=== PATIENT | female | born 1995 ===

== ENCOUNTER 2021-01-27 02:46 | Outpatient (CLI) | payer SELFPAY ==
[2021-01-27 03:45] VITALS: BP 115/66
== END 2021-01-27 04:56 | disposition home or self-care (01) ==
LOC: TRG 02:46 → APU 02:48 → TRG 04:56
PROVIDERS: ATTEND Obstetrics & Gynecology
DX: Z34.93 Encounter for supervision of normal pregnancy, unspecified, third trimester (principal); Z3A.39 39 weeks gestation of pregnancy
CPT/HCPCS: 59025

== ENCOUNTER 2021-02-05 20:53 | Inpatient (IN) | payer SELFPAY ==
[2021-02-05] MEDS ORDERED: OXYTOCIN 10 UNIT/1 ML INJ IM PRN (22:07)
[2021-02-05] MEDS ORDERED: METHYLERGONOVINE MALEATE 0.2 MG/ML VIAL IM PRN (22:07)
[2021-02-05] MEDS ORDERED: miSOPROStol 200 MCG TAB PR PRN (22:07)
[2021-02-05] MEDS ORDERED: ePHEDrine SULFATE 50 MG/1 ML INJ IV PRN (22:07)
[2021-02-05] MEDS ORDERED: LOPERAMIDE 2 MG CAP PO PRN (22:07)
[2021-02-05] MEDS ORDERED: TERBUTALINE 1 MG/1 ML INJ SUB-Q PRN (22:07)
[2021-02-05] MEDS ORDERED: LIDOCAINE (2%) 20 MG/1 ML VIAL 20 ML MDV INFILTRATI ONE (22:07)
[2021-02-05] MEDS ORDERED: BUTORPHANOL 2 MG/1 ML INJ IV PRN (22:07)
[2021-02-05] MEDS ORDERED: MINERAL OIL 30 ML ORAL LIQD PO PRN (22:07)
[2021-02-05] MEDS ORDERED: CARBOPROST TROMETHAMINE 250 MCG/1 ML INJ IM PRN (22:07)
[2021-02-05] MEDS ORDERED: ACETAMINOPHEN 325 MG TAB PO ONE (22:10)
[2021-02-05 22:21] LABS: Hematocrit 32.4 % (30.3-42.9); Hemoglobin 11.2 gm/dl (10.1-14.3); Mean Corpuscular HGB Conc 35 % (30-34); Mean Corpuscular Volume 94 fl (79-97); Platelet Count 317 K/mm3 (140-440); Red Blood Count 3.44 M/mm3 (3.65-5.03); Red Cell Distribution Width 14.3 % (13.2-15.2)
--- NOTE | 2021-02-05 22:25 | History and Physical Report ---
History of Present Illness Date of examination: 02/05/21 Date of admission: 02/05/21 20:53 Chief complaint: IOL for postdates History of present illness: 25yo G1 at weeks, IOL For postdates. PNC at [facility] possible LGA Past History Past Surgical History: no surgical history [employer] History: abnormal PAP smear Family/Genetic History: none Social history: no significant social history - Obstetrical History Expected Date of Delivery: 01/29/21 Actual Gestation: 41 Week(s) 0 Day(s) : 1 Medications and Allergies Allergies Allergy/AdvReac Type Severity Reaction Status Date / Time No Known Allergies Allergy Verified 02/05/21 22:22 Home Medications Medication Instructions Recorded Confirmed Last Taken Type One Daily Tablet 1 tab PO DAILY 02/05/21 02/05/21 02/05/21 19:00 History Active Meds: Active Medications Acetaminophen (Acetaminophen 325 Mg Tab) 650 mg PO ONCE ONE Stop: 02/05/21 22:11 Butorphanol Tartrate (Butorphanol 2 Mg/1 Ml Inj) 1 mg IV Q2H PRN PRN Reason: Pain, Moderate(4-6) LABOR PAIN Butorphanol Tartrate (Butorphanol 2 Mg/1 Ml Inj) 2 mg IV Q2H PRN PRN Reason: Pain , Severe (7-10) Carboprost Tromethamine (Carboprost Tromethamine 250 Mcg/1 Ml Inj) 250 mcg IM ONCE PRN PRN Reason: Uterine Bleeding Ephedrine Sulfate (Ephedrine Sulfate 50 Mg/1 Ml Inj) 10 mg IV Q2M PRN PRN Reason: Hypotension Fentanyl (Fentanyl 100 Mcg/2 Ml Inj) 100 mcg IV Q2H PRN PRN Reason: Pain,Severe (7-10) LABOR PAIN Oxytocin/Sodium Chloride (Pitocin/Ns 30 Unit/500ml) 30 units in 500 mls @ 2 mls/hr IV TITR NICOLE; Protocol Lactated Ringer's (Lactated Ringers) 1,000 mls @ 125 mls/hr IV DIRECT NICOLE Oxytocin/Sodium Chloride (Pitocin/Ns 30 Unit/500ml) 30 units in 500 mls @ 40 mls/hr IV TITR NICOLE; Protocol Lidocaine (Lidocaine (2%) 20 Mg/1 Ml Vial 20 Ml Mdv) 20 ml INFILTRATI ONCE ONE Stop: 02/05/21 22:08 Loperamide HCl (Loperamide 2 Mg Cap) 2 mg PO ONCE PRN PRN Reason: give with Hemabate Methylergonovine Maleate (Methylergonovine Maleate 0.2 Mg/Ml Vial) 0.2 mg IM ONCE PRN PRN Reason: Uterine Bleeding Mineral Oil (Mineral Oil 30 Ml Oral Liqd) 30 ml PO QHS PRN PRN Reason: Constipation Misoprostol (Misoprostol 200 Mcg Tab) [address] ONCE PRN PRN Reason: Uterine Bleeding Oxytocin (Oxytocin 10 Unit/1 Ml Inj) 10 unit IM ONCE PRN PRN Reason: Uterine Bleeding Terbutaline Sulfate (Terbutaline 1 Mg/1 Ml Inj) 0.25 mg SUB-Q ONCE PRN PRN Reason: Hyperstimulation/Hypertonicity Review of Systems All systems: negative (no OB complaints) - Vital Signs Vital signs: Vital Signs Temp Resp 99 F 18 02/05/21 21:33 02/05/21 21:33 Temp Pulse Resp BP Pulse Ox 99 F 92 H 18 99 02/05/21 21:33 02/05/21 22:18 02/05/21 21:33 02/05/21 22:18 - Physical Exam Breasts: Positive: deferred Cardiovascular: Regular rate Lungs: Positive: Clear to auscultation Abdomen: Positive: normal appearance, soft, normal bowel sounds Genitourinary (Female): Positive: normal external genitalia, normal perenium Vulva: both: normal Vagina: Positive: normal moisture Uterus: Positive: enlarged Adnexa: both: normal Anus/Rectum: Positive: normal perianal skin Extremities: Positive: normal Deep Tendon Reflex Grade: Normal +2 - Obstetrical FHR: category 1 Cervical Dilatation: 3 Cervical Effacement Percentage: 50 station: -2 Uterine Contraction Pattern: Irregular Uterine Tone Measurement Phase: Contraction Uterine Contraction Intensity: Mild Results Result Diagrams: 02/05/21 21:50 Abnormal lab results 02/05/21 Range/Units 21:50 RBC 3.44 L (3.65-5.03) M/mm3 MCH 33 H (28-32) pg MCHC 35 H (30-34) % All other labs normal. Assessment and Plan admission US for EFW Pitocin GBS negative CFM Pain meds PRN Monitor labor progress closely Maternal/ well being reassuring at bedside Jaleesa Thomas MD
[2021-02-05] MEDS: LACTATED RINGERS 1,000 ML IV SCH (22:48)
[2021-02-05] MEDS ORDERED: OXYTOCIN DRIP 30 UNITS/500 ML BAG IV SCH ×2 (23:00)
--- NOTE | 2021-02-06 03:01 | Ultrasound Report ---
OB ultrasound INDICATION: well-being FINDINGS: There is a single live intrauterine in cephalic position. Placenta grade 3. heart rate 1 27 bpm. Ultrasound age 40 weeks 3 days. weight 4008 5 g IMPRESSION: Live intrauterine in cephalic position. Ultrasound age 40 weeks 3 days. heart rate 12 7 bpm. Signer Name: Ishmael Morel MD Signed: 02/06/2021 2:56 AM Workstation Name: [id number]
[2021-02-06] MEDS: fentaNYL 100 MCG/2 ML INJ IV PRN ×2 (05:03→23:46)
[2021-02-06] MEDS: LACTATED RINGERS 1,000 ML IV SCH ×2 (06:59→15:42)
[2021-02-06] MEDS: BUTORPHANOL 2 MG/1 ML INJ IV PRN ×4 (07:42→15:46)
[2021-02-06] MEDS: ONDANSETRON 4 MG/2 ML INJ IV PRN ×2 (09:43→15:47)
--- NOTE | 2021-02-06 10:14 | Progress Note ---
Assessment and Plan A: IUP @ 41 1/7 Weeks Category I Tracing Active Labor GBS Negative P: Continue Pitocin Augmentation Multiple Maternal Position Changes IV Pain Control Subjective - Subjective Date of service: 02/06/21 Patient reports: movement normal, contractions Objective - Vital Signs Vital Signs: Vital Signs - 12hr 02/05/21 02/05/21 02/05/21 22:13 22:18 22:23 Temperature Pulse Rate 77 92 H 75 Respiratory Rate Blood Pressure O2 Sat by Pulse 99 99 99 Oximetry O2 Sat by Pulse Oximetry [ Bilateral] 02/05/21 02/05/21 02/05/21 22:28 22:33 22:38 Temperature Pulse Rate 98 H 88 86 Respiratory Rate Blood Pressure O2 Sat by Pulse 99 98 98 Oximetry O2 Sat by Pulse Oximetry [ Bilateral] 02/05/21 02/05/21 02/05/21 22:43 22:48 22:53 Temperature Pulse Rate 87 84 76 Respiratory Rate Blood Pressure O2 Sat by Pulse 99 98 99 Oximetry O2 Sat by Pulse Oximetry [ Bilateral] 02/05/21 02/05/21 02/05/21 22:58 23:03 23:08 Temperature Pulse Rate 80 86 80 Respiratory Rate Blood Pressure O2 Sat by Pulse 99 98 99 Oximetry O2 Sat by Pulse Oximetry [ Bilateral] 02/05/21 02/05/21 02/05/21 23:13 23:18 23:23 Temperature Pulse Rate 76 78 86 Respiratory Rate Blood Pressure O2 Sat by Pulse 99 98 99 Oximetry O2 Sat by Pulse Oximetry [ Bilateral] 02/05/21 02/05/21 02/05/21 23:28 23:33 23:38 Temperature Pulse Rate 78 81 83 Respiratory Rate Blood Pressure O2 Sat by Pulse 98 99 98 Oximetry O2 Sat by Pulse Oximetry [ Bilateral] 02/05/21 02/05/21 02/05/21 23:43 23:48 23:53 Temperature Pulse Rate 79 96 H 101 H Respiratory Rate Blood Pressure O2 Sat by Pulse 99 99 97 Oximetry O2 Sat by Pulse Oximetry [ Bilateral] 02/05/21 02/06/21 02/06/21 23:58 00:03 00:08 Temperature Pulse Rate 81 78 74 Respiratory Rate Blood Pressure O2 Sat by Pulse 96 96 97 Oximetry O2 Sat by Pulse Oximetry [ Bilateral] 02/06/21 02/06/21 02/06/21 00:13 00:18 00:23 Temperature Pulse Rate 84 90 80 Respiratory Rate Blood Pressure O2 Sat by Pulse 97 98 96 Oximetry O2 Sat by Pulse Oximetry [ Bilateral] 02/06/21 02/06/21 02/06/21 00:28 00:33 00:38 Temperature Pulse Rate 89 82 95 H Respiratory Rate Blood Pressure O2 Sat by Pulse 97 97 97 Oximetry O2 Sat by Pulse Oximetry [ Bilateral] 02/06/21 02/06/21 02/06/21 00:43 00:48 00:53 Temperature Pulse Rate 88 87 79 Respiratory Rate Blood Pressure O2 Sat by Pulse 97 97 97 Oximetry O2 Sat by Pulse Oximetry [ Bilateral] 02/06/21 02/06/21 02/06/21 00:58 01:03 01:08 Temperature Pulse Rate 77 74 73 Respiratory Rate Blood Pressure O2 Sat by Pulse 96 96 96 Oximetry O2 Sat by Pulse Oximetry [ Bilateral] 02/06/21 02/06/21 02/06/21 01:09 01:10 01:13 Temperature 98.9 F Pulse Rate 71 85 Respiratory 17 Rate Blood Pressure 113/57 O2 Sat by Pulse 97 Oximetry O2 Sat by Pulse Oximetry [ Bilateral] 02/06/21 02/06/21 02/06/21 01:18 01:23 01:28 Temperature Pulse Rate 81 75 90 Respiratory Rate Blood Pressure O2 Sat by Pulse 97 98 96 Oximetry O2 Sat by Pulse Oximetry [ Bilateral] 02/06/21 02/06/21 02/06/21 01:33 01:38 01:43 Temperature Pulse Rate 75 70 80 Respiratory Rate Blood Pressure O2 Sat by Pulse 97 96 97 Oximetry O2 Sat by Pulse Oximetry [ Bilateral] 02/06/21 02/06/21 02/06/21 01:48 01:53 01:58 Temperature Pulse Rate 69 68 68 Respiratory Rate Blood Pressure O2 Sat by Pulse 99 97 96 Oximetry O2 Sat by Pulse Oximetry [ Bilateral] 02/06/21 02/06/21 02/06/21 02:03 02:08 02:13 Temperature Pulse Rate 67 72 70 Respiratory Rate Blood Pressure O2 Sat by Pulse 95 95 97 Oximetry O2 Sat by Pulse Oximetry [ Bilateral] 02/06/21 02/06/21 02/06/21 02:18 02:23 02:28 Temperature Pulse Rate 72 65 65 Respiratory Rate Blood Pressure O2 Sat by Pulse 99 99 98 Oximetry O2 Sat by Pulse Oximetry [ Bilateral] 02/06/21 02/06/21 02/06/21 02:33 02:38 02:43 Temperature Pulse Rate 68 81 72 Respiratory Rate Blood Pressure O2 Sat by Pulse 98 97 97 Oximetry O2 Sat by Pulse Oximetry [ Bilateral] 02/06/21 02/06/21 02/06/21 02:48 02:53 03:09 Temperature Pulse Rate 79 73 Respiratory Rate Blood Pressure O2 Sat by Pulse 97 96 88 Oximetry O2 Sat by Pulse Oximetry [ Bilateral] 02/06/21 02/06/21 02/06/21 03:10 03:14 03:19 Temperature Pulse Rate 82 69 64 Respiratory Rate Blood Pressure O2 Sat by Pulse 88 99 98 Oximetry O2 Sat by Pulse Oximetry [ Bilateral] 02/06/21 02/06/21 02/06/21 03:24 03:29 03:34 Temperature Pulse Rate 69 89 80 Respiratory Rate Blood Pressure O2 Sat by Pulse 99 98 96 Oximetry O2 Sat by Pulse Oximetry [ Bilateral] 02/06/21 02/06/21 02/06/21 03:39 03:44 03:49 Temperature Pulse Rate 65 67 79 Respiratory Rate Blood Pressure O2 Sat by Pulse 98 98 96 Oximetry O2 Sat by Pulse Oximetry [ Bilateral] 02/06/21 02/06/21 02/06/21 03:54 03:59 04:04 Temperature Pulse Rate 76 78 65 Respiratory Rate Blood Pressure O2 Sat by Pulse 99 98 99 Oximetry O2 Sat by Pulse Oximetry [ Bilateral] 02/06/21 02/06/21 02/06/21 04:09 04:14 04:19 Temperature Pulse Rate 66 68 70 Respiratory Rate Blood Pressure 118/69 O2 Sat by Pulse 99 98 98 Oximetry O2 Sat by Pulse Oximetry [ Bilateral] 02/06/21 02/06/21 02/06/21 04:24 04:55 05:00 Temperature Pulse Rate 71 69 66 Respiratory Rate Blood Pressure O2 Sat by Pulse 99 99 98 Oximetry O2 Sat by Pulse Oximetry [ Bilateral] 02/06/21 02/06/21 02/06/21 05:05 05:07 05:10 Temperature 98.9 F Pulse Rate 64 66 Respiratory 16 Rate Blood Pressure 107/59 O2 Sat by Pulse 98 96 Oximetry O2 Sat by Pulse Oximetry [ Bilateral] 02/06/21 02/06/21 02/06/21 05:15 05:20 05:25 Temperature Pulse Rate 61 68 62 Respiratory Rate Blood Pressure O2 Sat by Pulse 96 97 97 Oximetry O2 Sat by Pulse Oximetry [ Bilateral] 02/06/21 02/06/21 02/06/21 05:30 05:35 05:40 Temperature Pulse Rate 63 59 L 63 Respiratory Rate Blood Pressure O2 Sat by Pulse 97 97 97 Oximetry O2 Sat by Pulse Oximetry [ Bilateral] 02/06/21 02/06/21 02/06/21 05:45 05:50 05:55 Temperature Pulse Rate 60 64 64 Respiratory Rate Blood Pressure O2 Sat by Pulse 98 97 97 Oximetry O2 Sat by Pulse Oximetry [ Bilateral] 02/06/21 02/06/21 02/06/21 06:00 06:05 06:09 Temperature Pulse Rate 61 65 56 L Respiratory Rate Blood Pressure 100/51 O2 Sat by Pulse 98 98 Oximetry O2 Sat by Pulse Oximetry [ Bilateral] 02/06/21 02/06/21 02/06/21 06:10 06:15 06:20 Temperature Pulse Rate 64 64 61 Respiratory Rate Blood Pressure O2 Sat by Pulse 100 100 99 Oximetry O2 Sat by Pulse Oximetry [ Bilateral] 02/06/21 02/06/21 02/06/21 06:25 06:29 06:30 Temperature Pulse Rate 61 90 77 Respiratory Rate Blood Pressure O2 Sat by Pulse 99 93 100 Oximetry O2 Sat by Pulse Oximetry [ Bilateral] 02/06/21 02/06/21 02/06/21 06:35 06:40 06:45 Temperature Pulse Rate 62 65 94 H Respiratory Rate Blood Pressure O2 Sat by Pulse 99 99 97 Oximetry O2 Sat by Pulse Oximetry [ Bilateral] 02/06/21 02/06/21 02/06/21 06:50 06:55 07:00 Temperature Pulse Rate 71 69 75 Respiratory Rate Blood Pressure O2 Sat by Pulse 100 98 99 Oximetry O2 Sat by Pulse Oximetry [ Bilateral] 02/06/21 02/06/21 02/06/21 07:26 07:31 07:36 Temperature Pulse Rate 74 70 82 Respiratory Rate Blood Pressure O2 Sat by Pulse 100 98 99 Oximetry O2 Sat by Pulse Oximetry [ Bilateral] 02/06/21 02/06/21 02/06/21 07:41 07:46 07:51 Temperature Pulse Rate 106 H 80 71 Respiratory Rate Blood Pressure O2 Sat by Pulse 98 98 98 Oximetry O2 Sat by Pulse Oximetry [ Bilateral] 02/06/21 02/06/21 02/06/21 07:52 07:56 08:00 Temperature 97.9 F Pulse Rate 73 78 Respiratory 18 Rate Blood Pressure O2 Sat by Pulse 93 98 Oximetry O2 Sat by Pulse 98 Oximetry [ Bilateral] 02/06/21 02/06/21 02/06/21 08:01 08:06 08:11 Temperature Pulse Rate 72 78 77 Respiratory Rate Blood Pressure 120/62 O2 Sat by Pulse 96 99 97 Oximetry O2 Sat by Pulse Oximetry [ Bilateral] 02/06/21 02/06/21 02/06/21 08:16 08:21 08:26 Temperature Pulse Rate 79 79 69 Respiratory Rate Blood Pressure O2 Sat by Pulse 96 97 97 Oximetry O2 Sat by Pulse Oximetry [ Bilateral] 02/06/21 02/06/21 02/06/21 08:31 08:32 08:36 Temperature Pulse Rate 77 71 78 Respiratory Rate Blood Pressure 125/59 O2 Sat by Pulse 97 97 Oximetry O2 Sat by Pulse Oximetry [ Bilateral] 02/06/21 02/06/21 02/06/21 08:41 08:46 08:51 Temperature Pulse Rate 85 86 86 Respiratory Rate Blood Pressure O2 Sat by Pulse 99 97 98 Oximetry O2 Sat by Pulse Oximetry [ Bilateral] 02/06/21 02/06/21 02/06/21 08:56 09:01 09:02 Temperature Pulse Rate 90 85 83 Respiratory Rate Blood Pressure 131/75 O2 Sat by Pulse 97 97 Oximetry O2 Sat by Pulse Oximetry [ Bilateral] 02/06/21 02/06/21 02/06/21 09:06 09:11 09:16 Temperature Pulse Rate 84 75 91 H Respiratory Rate Blood Pressure O2 Sat by Pulse 97 98 98 Oximetry O2 Sat by Pulse Oximetry [ Bilateral] 02/06/21 02/06/21 02/06/21 09:21 09:26 09:31 Temperature Pulse Rate 91 H 89 95 H Respiratory Rate Blood Pressure O2 Sat by Pulse 97 97 97 Oximetry O2 Sat by Pulse Oximetry [ Bilateral] 02/06/21 02/06/21 02/06/21 09:32 09:35 09:36 Temperature Pulse Rate 98 H 87 93 H Respiratory Rate Blood Pressure 136/66 O2 Sat by Pulse 94 96 Oximetry O2 Sat by Pulse Oximetry [ Bilateral] 1002/06/21 02/06/21 09:41 09:46 09:47 Temperature Pulse Rate 76 73 74 Respiratory Rate Blood Pressure 97/50 O2 Sat by Pulse 96 95 Oximetry O2 Sat by Pulse Oximetry [ Bilateral] 02/06/21 02/06/21 02/06/21 09:51 09:54 09:56 Temperature Pulse Rate 81 81 77 Respiratory Rate Blood Pressure O2 Sat by Pulse 100 92 96 Oximetry O2 Sat by Pulse Oximetry [ Bilateral] 02/06/21 02/06/21 02/06/21 10:01 10:03 10:06 Temperature Pulse Rate 85 77 84 Respiratory Rate Blood Pressure 115/58 O2 Sat by Pulse 97 95 Oximetry O2 Sat by Pulse Oximetry [ Bilateral] 02/06/21 10:07 Temperature Pulse Rate 78 Respiratory Rate Blood Pressure O2 Sat by Pulse 94 Oximetry O2 Sat by Pulse Oximetry [ Bilateral] - Exam Breasts: normal Cardiovascular: Regular rate Lungs: Clear to auscultation, Normal air movement Abdomen: Present: normal appearance, soft Uterus: Present: normal, firm, fundal height above umbilicus FHR: category 1 Uterine Contraction Monitor Mode: External Cervical Dilatation: 6.5 (No fluid leaking) Cervical Effacement Percentage: 90 station: 0 Uterine Contraction Frequency (min): 2 Uterine Contraction Pattern: Regular Uterine Tone Measurement Phase: Resting Uterine Contraction Intensity: Moderate Extremities: normal - Labs Labs: Abnormal Labs 02/05/21 21:50 RBC 3.44 L MCH 33 H MCHC 35 H Laboratory Results - last 24 hr 02/05/21 02/05/21 21:50 21:50 WBC 7.9 RBC 3.44 L Hgb 11.2 Hct 32.4 MCV 94 MCH 33 H MCHC 35 H RDW 14.3 Plt Count 317 Blood Type O POSITIVE Antibody Screen Negative
--- NOTE | 2021-02-06 15:40 | Progress Note ---
Assessment and Plan A: IUP @ 41 1/7 Weeks Category I Tracing Active Labor GBS Negative P: Continue Pitocin Augmentation Multiple Maternal Position Changes IV Pain Control Dr. Levi Consulted Subjective - Subjective Date of service: 02/06/21 Patient reports: movement normal, contractions Objective - Vital Signs Vital Signs: Vital Signs - 12hr 02/06/21 02/06/21 02/06/21 03:39 03:44 03:49 Temperature Pulse Rate 65 67 79 Respiratory Rate Blood Pressure O2 Sat by Pulse 98 98 96 Oximetry O2 Sat by Pulse Oximetry [ Bilateral] 02/06/21 02/06/21 02/06/21 03:54 03:59 04:04 Temperature Pulse Rate 76 78 65 Respiratory Rate Blood Pressure O2 Sat by Pulse 99 98 99 Oximetry O2 Sat by Pulse Oximetry [ Bilateral] 02/06/21 02/06/21 02/06/21 04:09 04:14 04:19 Temperature Pulse Rate 66 68 70 Respiratory Rate Blood Pressure 118/69 O2 Sat by Pulse 99 98 98 Oximetry O2 Sat by Pulse Oximetry [ Bilateral] 02/06/21 02/06/21 02/06/21 04:24 04:55 05:00 Temperature Pulse Rate 71 69 66 Respiratory Rate Blood Pressure O2 Sat by Pulse 99 99 98 Oximetry O2 Sat by Pulse Oximetry [ Bilateral] 02/06/21 02/06/21 02/06/21 05:05 05:07 05:10 Temperature 98.9 F Pulse Rate 64 66 Respiratory 16 Rate Blood Pressure 107/59 O2 Sat by Pulse 98 96 Oximetry O2 Sat by Pulse Oximetry [ Bilateral] 02/06/21 02/06/21 02/06/21 05:15 05:20 05:25 Temperature Pulse Rate 61 68 62 Respiratory Rate Blood Pressure O2 Sat by Pulse 96 97 97 Oximetry O2 Sat by Pulse Oximetry [ Bilateral] 02/06/21 02/06/21 02/06/21 05:30 05:35 05:40 Temperature Pulse Rate 63 59 L 63 Respiratory Rate Blood Pressure O2 Sat by Pulse 97 97 97 Oximetry O2 Sat by Pulse Oximetry [ Bilateral] 02/06/21 02/06/21 02/06/21 05:45 05:50 05:55 Temperature Pulse Rate 60 64 64 Respiratory Rate Blood Pressure O2 Sat by Pulse 98 97 97 Oximetry O2 Sat by Pulse Oximetry [ Bilateral] 02/06/21 02/06/21 02/06/21 06:00 06:05 06:09 Temperature Pulse Rate 61 65 56 L Respiratory Rate Blood Pressure 100/51 O2 Sat by Pulse 98 98 Oximetry O2 Sat by Pulse Oximetry [ Bilateral] 02/06/21 02/06/21 02/06/21 06:10 06:15 06:20 Temperature Pulse Rate 64 64 61 Respiratory Rate Blood Pressure O2 Sat by Pulse 100 100 99 Oximetry O2 Sat by Pulse Oximetry [ Bilateral] 02/06/21 02/06/21 02/06/21 06:25 06:29 06:30 Temperature Pulse Rate 61 90 77 Respiratory Rate Blood Pressure O2 Sat by Pulse 99 93 100 Oximetry O2 Sat by Pulse Oximetry [ Bilateral] 02/06/21 02/06/21 02/06/21 06:35 06:40 06:45 Temperature Pulse Rate 62 65 94 H Respiratory Rate Blood Pressure O2 Sat by Pulse 99 99 97 Oximetry O2 Sat by Pulse Oximetry [ Bilateral] 02/06/21 02/06/21 02/06/21 06:50 06:55 07:00 Temperature Pulse Rate 71 69 75 Respiratory Rate Blood Pressure O2 Sat by Pulse 100 98 99 Oximetry O2 Sat by Pulse Oximetry [ Bilateral] 02/06/21 02/06/21 02/06/21 07:26 07:31 07:36 Temperature Pulse Rate 74 70 82 Respiratory Rate Blood Pressure O2 Sat by Pulse 100 98 99 Oximetry O2 Sat by Pulse Oximetry [ Bilateral] 02/06/21 02/06/21 02/06/21 07:41 07:46 07:51 Temperature Pulse Rate 106 H 80 71 Respiratory Rate Blood Pressure O2 Sat by Pulse 98 98 98 Oximetry O2 Sat by Pulse Oximetry [ Bilateral] 02/06/21 02/06/21 02/06/21 07:52 07:56 08:00 Temperature 97.9 F Pulse Rate 73 78 Respiratory 18 Rate Blood Pressure O2 Sat by Pulse 93 98 Oximetry O2 Sat by Pulse 98 Oximetry [ Bilateral] 02/06/21 02/06/21 02/06/21 08:01 08:06 08:11 Temperature Pulse Rate 72 78 77 Respiratory Rate Blood Pressure 120/62 O2 Sat by Pulse 96 99 97 Oximetry O2 Sat by Pulse Oximetry [ Bilateral] 02/06/21 02/06/21 02/06/21 08:16 08:21 08:26 Temperature Pulse Rate 79 79 69 Respiratory Rate Blood Pressure O2 Sat by Pulse 96 97 97 Oximetry O2 Sat by Pulse Oximetry [ Bilateral] 02/06/21 02/06/21 02/06/21 08:31 08:32 08:36 Temperature Pulse Rate 77 71 78 Respiratory Rate Blood Pressure 125/59 O2 Sat by Pulse 97 97 Oximetry O2 Sat by Pulse Oximetry [ Bilateral] 02/06/21 02/06/21 02/06/21 08:41 08:46 08:51 Temperature Pulse Rate 85 86 86 Respiratory Rate Blood Pressure O2 Sat by Pulse 99 97 98 Oximetry O2 Sat by Pulse Oximetry [ Bilateral] 02/06/21 02/06/21 02/06/21 08:56 09:01 09:02 Temperature Pulse Rate 90 85 83 Respiratory Rate Blood Pressure 131/75 O2 Sat by Pulse 97 97 Oximetry O2 Sat by Pulse Oximetry [ Bilateral] 02/06/21 02/06/21 02/06/21 09:06 09:11 09:16 Temperature Pulse Rate 84 75 91 H Respiratory Rate Blood Pressure O2 Sat by Pulse 97 98 98 Oximetry O2 Sat by Pulse Oximetry [ Bilateral] 02/06/21 02/06/21 02/06/21 09:21 09:26 09:31 Temperature Pulse Rate 91 H 89 95 H Respiratory Rate Blood Pressure O2 Sat by Pulse 97 97 97 Oximetry O2 Sat by Pulse Oximetry [ Bilateral] 02/06/21 02/06/21 02/06/21 09:32 09:35 09:36 Temperature Pulse Rate 98 H 87 93 H Respiratory Rate Blood Pressure 136/66 O2 Sat by Pulse 94 96 Oximetry O2 Sat by Pulse Oximetry [ Bilateral] 02/06/21 02/06/21 02/06/21 09:41 09:46 09:47 Temperature Pulse Rate 76 73 74 Respiratory Rate Blood Pressure 97/50 O2 Sat by Pulse 96 95 Oximetry O2 Sat by Pulse Oximetry [ Bilateral] 02/06/21 02/06/21 02/06/21 09:51 09:54 09:56 Temperature Pulse Rate 81 81 77 Respiratory Rate Blood Pressure O2 Sat by Pulse 100 92 96 Oximetry O2 Sat by Pulse Oximetry [ Bilateral] 02/06/21 02/06/21 02/06/21 10:01 10:03 10:06 Temperature Pulse Rate 85 77 84 Respiratory Rate Blood Pressure 115/58 O2 Sat by Pulse 97 95 Oximetry O2 Sat by Pulse Oximetry [ Bilateral] 02/06/21 02/06/21 02/06/21 10:07 10:11 10:16 Temperature Pulse Rate 78 74 83 Respiratory Rate Blood Pressure O2 Sat by Pulse 94 96 96 Oximetry O2 Sat by Pulse Oximetry [ Bilateral] 02/06/21 02/06/21 02/06/21 10:26 10:31 10:36 Temperature Pulse Rate 81 70 70 Respiratory Rate Blood Pressure 134/68 O2 Sat by Pulse 96 97 98 Oximetry O2 Sat by Pulse Oximetry [ Bilateral] 02/06/21 02/06/21 02/06/21 10:41 10:46 10:51 Temperature Pulse Rate 87 91 H 87 Respiratory Rate Blood Pressure O2 Sat by Pulse 100 99 97 Oximetry O2 Sat by Pulse Oximetry [ Bilateral] 02/06/21 02/06/21 02/06/21 10:55 10:56 11:01 Temperature Pulse Rate 74 82 99 H Respiratory Rate Blood Pressure O2 Sat by Pulse 92 90 96 Oximetry O2 Sat by Pulse Oximetry [ Bilateral] 02/06/21 02/06/21 02/06/21 11:03 11:06 11:11 Temperature Pulse Rate 113 H 88 78 Respiratory Rate Blood Pressure 135/62 O2 Sat by Pulse 94 97 Oximetry O2 Sat by Pulse Oximetry [ Bilateral] 02/06/21 02/06/21 02/06/21 11:16 11:21 11:26 Temperature Pulse Rate 81 75 84 Respiratory Rate Blood Pressure O2 Sat by Pulse 97 97 97 Oximetry O2 Sat by Pulse Oximetry [ Bilateral] 02/06/21 02/06/21 02/06/21 11:31 11:32 11:33 Temperature Pulse Rate 69 69 94 H Respiratory Rate Blood Pressure 102/48 O2 Sat by Pulse 97 94 Oximetry O2 Sat by Pulse Oximetry [ Bilateral] 02/06/21 02/06/21 02/06/21 11:36 11:39 11:41 Temperature Pulse Rate 89 92 H 71 Respiratory Rate Blood Pressure O2 Sat by Pulse 97 92 97 Oximetry O2 Sat by Pulse Oximetry [ Bilateral] 02/06/21 02/06/21 02/06/21 11:46 11:50 11:51 Temperature Pulse Rate 80 85 79 Respiratory Rate Blood Pressure 125/58 O2 Sat by Pulse 96 96 Oximetry O2 Sat by Pulse Oximetry [ Bilateral] 02/06/21 02/06/21 02/06/21 11:56 12:01 12:02 Temperature Pulse Rate 79 90 83 Respiratory Rate Blood Pressure 105/51 O2 Sat by Pulse 98 98 Oximetry O2 Sat by Pulse Oximetry [ Bilateral] 02/06/21 02/06/21 02/06/21 12:06 12:07 12:11 Temperature Pulse Rate 100 H 101 H 68 Respiratory Rate Blood Pressure O2 Sat by Pulse 95 94 95 Oximetry O2 Sat by Pulse Oximetry [ Bilateral] 02/06/21 02/06/21 02/06/21 12:12 12:16 12:21 Temperature Pulse Rate 68 91 H 84 Respiratory Rate Blood Pressure O2 Sat by Pulse 88 98 96 Oximetry O2 Sat by Pulse Oximetry [ Bilateral] 02/06/21 02/06/21 02/06/21 12:26 12:28 12:31 Temperature Pulse Rate 87 90 89 Respiratory Rate Blood Pressure 102/50 O2 Sat by Pulse 97 92 97 Oximetry O2 Sat by Pulse Oximetry [ Bilateral] 02/06/21 02/06/21 02/06/21 12:36 12:41 12:46 Temperature Pulse Rate 77 72 96 H Respiratory Rate Blood Pressure O2 Sat by Pulse 96 96 97 Oximetry O2 Sat by Pulse Oximetry [ Bilateral] 02/06/21 02/06/21 02/06/21 12:50 12:51 12:56 Temperature Pulse Rate 84 75 76 Respiratory Rate Blood Pressure O2 Sat by Pulse 93 97 96 Oximetry O2 Sat by Pulse Oximetry [ Bilateral] 02/06/21 02/06/21 02/06/21 13:01 13:03 13:04 Temperature Pulse Rate 92 H 70 86 Respiratory Rate Blood Pressure 108/57 O2 Sat by Pulse 96 89 Oximetry O2 Sat by Pulse Oximetry [ Bilateral] 02/06/21 02/06/21 02/06/21 13:06 13:09 13:11 Temperature Pulse Rate 90 94 H 92 H Respiratory Rate Blood Pressure O2 Sat by Pulse 98 94 98 Oximetry O2 Sat by Pulse Oximetry [ Bilateral] 02/06/21 02/06/21 02/06/21 13:14 13:16 13:21 Temperature Pulse Rate 90 79 105 H Respiratory Rate Blood Pressure O2 Sat by Pulse 88 97 100 Oximetry O2 Sat by Pulse Oximetry [ Bilateral] 02/06/21 02/06/21 02/06/21 13:26 13:27 13:31 Temperature Pulse Rate 85 107 H 80 Respiratory Rate Blood Pressure O2 Sat by Pulse 96 92 96 Oximetry O2 Sat by Pulse Oximetry [ Bilateral] 02/06/21 02/06/21 02/06/21 13:33 13:36 13:41 Temperature Pulse Rate 94 H 93 H 81 Respiratory Rate Blood Pressure 115/65 O2 Sat by Pulse 98 97 Oximetry O2 Sat by Pulse Oximetry [ Bilateral] 02/06/21 02/06/21 02/06/21 13:46 13:50 13:51 Temperature Pulse Rate 106 H 89 88 Respiratory Rate Blood Pressure O2 Sat by Pulse 99 91 95 Oximetry O2 Sat by Pulse Oximetry [ Bilateral] 02/06/21 02/06/21 02/06/21 13:56 14:01 14:02 Temperature Pulse Rate 83 101 H 83 Respiratory Rate Blood Pressure 125/83 O2 Sat by Pulse 97 98 Oximetry O2 Sat by Pulse Oximetry [ Bilateral] 02/06/21 02/06/21 02/06/21 14:06 14:09 14:11 Temperature Pulse Rate 84 107 H 70 Respiratory Rate Blood Pressure O2 Sat by Pulse 98 94 96 Oximetry O2 Sat by Pulse Oximetry [ Bilateral] 02/06/21 02/06/21 02/06/21 14:16 14:21 14:26 Temperature Pulse Rate 99 H 91 H 101 H Respiratory Rate Blood Pressure O2 Sat by Pulse 96 97 93 Oximetry O2 Sat by Pulse Oximetry [ Bilateral] 02/06/21 02/06/21 02/06/21 14:31 14:32 14:34 Temperature Pulse Rate 104 H 96 H 91 H Respiratory Rate Blood Pressure 118/65 O2 Sat by Pulse 95 90 Oximetry O2 Sat by Pulse Oximetry [ Bilateral] 02/06/21 02/06/21 02/06/21 14:36 14:41 14:46 Temperature Pulse Rate 100 H 111 H 125 H Respiratory Rate Blood Pressure O2 Sat by Pulse 95 97 97 Oximetry O2 Sat by Pulse Oximetry [ Bilateral] 02/06/21 02/06/21 02/06/21 14:48 14:51 14:56 Temperature Pulse Rate 121 H 102 H 89 Respiratory Rate Blood Pressure O2 Sat by Pulse 94 96 98 Oximetry O2 Sat by Pulse Oximetry [ Bilateral] 02/06/21 02/06/21 02/06/21 15:01 15:02 15:06 Temperature Pulse Rate 115 H 100 H 109 H Respiratory Rate Blood Pressure 111/65 O2 Sat by Pulse 97 98 Oximetry O2 Sat by Pulse Oximetry [ Bilateral] 02/06/21 02/06/21 02/06/21 15:10 15:11 15:15 Temperature Pulse Rate 103 H 85 Respiratory Rate Blood Pressure O2 Sat by Pulse 93 96 84 Oximetry O2 Sat by Pulse Oximetry [ Bilateral] 02/06/21 02/06/21 02/06/21 15:16 15:21 15:26 Temperature Pulse Rate 104 H 95 H 96 H Respiratory Rate Blood Pressure O2 Sat by Pulse 96 96 96 Oximetry O2 Sat by Pulse Oximetry [ Bilateral] 02/06/21 02/06/21 02/06/21 15:28 15:31 15:33 Temperature Pulse Rate 102 H 95 H 79 Respiratory Rate Blood Pressure 124/65 O2 Sat by Pulse 94 97 Oximetry O2 Sat by Pulse Oximetry [ Bilateral] 02/06/21 15:36 Temperature Pulse Rate 89 Respiratory Rate Blood Pressure O2 Sat by Pulse 96 Oximetry O2 Sat by Pulse Oximetry [ Bilateral] - Exam Cardiovascular: Regular rate Lungs: Normal air movement Abdomen: Present: normal appearance, soft Uterus: Present: normal, firm, fundal height above umbilicus FHR: category 1 Uterine Contraction Monitor Mode: Internal Cervical Dilatation: 9 (leaking a scant amount of clear fluid) Cervical Effacement Percentage: 100 station: 0 Uterine Contraction Pattern: Regular Uterine Tone Measurement Phase: Resting Uterine Contraction Intensity: Moderate Extremities: normal - Labs Labs: Abnormal Labs 02/05/21 21:50 RBC 3.44 L MCH 33 H MCHC 35 H Laboratory Results - last 24 hr 02/05/21 02/05/21 02/06/21 21:50 21:50 Unknown WBC 7.9 RBC 3.44 L Hgb 11.2 Hct 32.4 MCV 94 MCH 33 H MCHC 35 H RDW 14.3 Plt Count 317 Coronavirus (PCR) Negative Blood Type O POSITIVE Antibody Screen Negative
[2021-02-06] MEDS ORDERED: ceFAZolin/Water 2 GM/20 ML 2 GM/20 ML SYRINGE IV ONE (22:40)
--- NOTE | 2021-02-06 22:42 | Anesthesia Day of Surgery ---
Anesthesia Day of Surgery - Day of Surgery Patient Examined: Yes Patient H&P Reviewed: Yes Patient is NPO: Yes Beta Blockers: No Cardiac Clearance: No Pulmonary Clearance: No Beto's Test: Negative
[2021-02-06] MEDS ORDERED: HYDROmorphone 1 MG/1 ML INJ IV PRN ×2 (22:45)
[2021-02-06] MEDS ORDERED: NALOXONE 0.4 MG/1 ML INJ IV PRN (22:45)
[2021-02-06] MEDS ORDERED: ONDANSETRON 4 MG/2 ML INJ IV PRN (22:45)
--- NOTE | 2021-02-06 22:45 | Anesthesia Consultation ---
Anesthesia Consult and Med Hx Date of service: 02/06/21 - Airway Anesthetic Teeth Evaluation: Good ROM Head & Neck: Adequate Mental/Hyoid Distance: Adequate Mallampati Class: Class II Intubation Access Assessment: Probably Good - Pulmonary Exam CTA: Yes - Cardiac Exam Cardiac Exam: RRR - Pre-Operative Health Status ASA Pre-Surgery Classification: ASA2 Proposed Anesthetic Plan: Spinal - Pulmonary Hx Smoking: No Hx Asthma: No Hx Respiratory Symptoms: No SOB: No COPD: No Home Oxygen Therapy: No Hx Pneumonia: No Hx Sleep Apnea: No - Cardiovascular System Hx Hypertension: No Hx Coronary Artery Disease: No Hx Heart Attack/AMI: No Hx Angina: No Hx Percutaneous Transluminal Coronary Angioplasty (PTCA): No Hx Cardia Arrhythmia: No Hx Pacemaker: No Hx Internal Defibrillator: No Hx Valvular Heart Disease: No Hx Heart Murmur: No Hx Peripheral Vascular Disease: No - Central Nervous System Hx Neuromuscular Disorder: No Hx Seizures: No CVA: No Hx Back Pain: No Hx Psychiatric Problems: No - Gastrointestinal Hx Ulcer: No Hx Gastroesophageal Reflux Disease: Yes - Endocrine Hx Renal Disease: No Hx End Stage Renal Disease: No Hx Cirrhosis: No Hx Liver Disease: No Hx Insulin Dependent Diabetes: No Hx Non-Insulin Dependent Diabetes: No Hx Thyroid Disease: No Hx Hypothyroidism: No Hx Hyperthyroidism: No - Hematic Hx Anemia: No Hx Sickle Cell Disease: No - Other Systems Hx Alcohol Use: No Hx Substance Use: No Hx Cancer: No Hx Obesity: Yes
[2021-02-06] MEDS ORDERED: FAMOTIDINE 20 MG/2 ML INJ IV ONE (22:47)
[2021-02-06] MEDS ORDERED: METOCLOPRAMIDE 10 MG/2 ML INJ IV ONE (22:47)
[2021-02-06] MEDS ORDERED: BICITRA ORAL LIQD 30ML PO ONE (22:47)
[2021-02-06] MEDS ORDERED: OXYTOCIN DRIP 30 UNITS/500 ML BAG IV SCH (23:00)
[2021-02-06] MEDS ORDERED: LACTATED RINGERS 1,000 ML IV SCH (23:00)
[2021-02-06] MEDS ORDERED: ceFAZolin/Water 2 GM/20 ML 2 GM/20 ML SYRINGE IV NR (23:00)
[2021-02-06] MEDS ORDERED: GENTAMICIN/NS 100 MG/100 ML 100 MG/100 ML BAG IV ONE (23:10)
[2021-02-06] MEDS ORDERED: AMPICILLIN/NS 2 GM/100 ML 2 GM/100 ML BAG IV ONE (23:10)
[2021-02-06] MEDS ORDERED: ONDANSETRON 4 MG/2 ML INJ ONE ×2 (23:10)
[2021-02-06] MEDS ORDERED: ACETAMINOPHEN 325 MG TAB PO ONE (23:14)
[2021-02-06] MEDS ORDERED: ACETAMINOPHEN 500 MG TAB PO ONE (23:20)
[2021-02-06] MEDS ORDERED: ACETAMINOPHEN IV 1,000 MG/100 ML BOTTLE IV NR (23:45)
--- NOTE | 2021-02-07 01:04 | Event Note ---
Date: 02/07/21 Pt with febrile morbidity. PT given amp and gent and tylenol. Will plan for delivery. NICU and anesthesiology notified. FHR remains category I. Pt with irregular contractions. PT to have section for failure to descend when staff available. All questions encouraged and answered.
[2021-02-07] MEDS: fentaNYL 100 MCG/2 ML INJ IV PRN (02:50)
[2021-02-07] MEDS ORDERED: WATER FOR IRRIG STERILE 1,500 ML BOTTLE IR ONE (05:10)
[2021-02-07] MEDS ORDERED: SODIUM CHLORIDE 0.9% IRR 1,500 ML BOTTLE IR ONE (05:10)
[2021-02-07] MEDS ORDERED: PHENYLEPHRINE/NS 1,000 MCG/10 ML SYRINGE (OR USE) IV ONE (05:27)
[2021-02-07] MEDS ORDERED: ceFAZolin/STERILE WATER 2 GM/20 ML SYRINGE IV ONE (05:30)
[2021-02-07] MEDS ORDERED: BUPIVACAINE/PF (0.25%) 2.5 MG/ML 30 ML VIAL INFILTRATI ONE ×2 (05:48)
[2021-02-07] MEDS ORDERED: dexAMETHasone 20 MG/5 ML VIAL ONE (05:48)
[2021-02-07] MEDS ORDERED: OXYTOCIN 10 UNIT/1 ML INJ ONE (06:23)
[2021-02-07] MEDS ORDERED: ePHEDrine SULFATE 50 MG/1 ML INJ ONE (06:23)
[2021-02-07] MEDS: LACTATED RINGERS 1,000 ML IV SCH (08:15)
--- NOTE | 2021-02-07 08:21 | Event Note ---
Date: 02/07/21 Pt decided to try one more time with my pelvic /+2 station and Kiwi vacuum attempted and same terminated when pt stated she can no longer push. Pt have recurrent early variables with pushing. NICU and Anesthesia notified again and proceeded to the OR at 5:50am. consents signed. All questions encouraged and answered
--- NOTE | 2021-02-07 08:25 | Procedure Note ---
OB Delivery Note - Delivery Date of Delivery: 02/07/21 Surgeon: LAURA SOTO Estimated blood loss: other (325cc) - Section Preop diagnosis: arrest of dilation (complete at +2 station, maternal exhaustion), nonreassuring FHR tracing Postop diagnosis: same section procedure: primary low transverse Disposition: floor Complications: none Narrative: Date: 02/07/21 Surgeon: Laura Soto MD Preop Dx: IUP at 41.2wks, arrest of descent with maternal exhaustion at +2 station; chorioamnionitis on amp and gent antibiotics Postop Dx: same Procedure : Primary Low transverse section Anesthesia: Spinal Intake: 1300cc crystalloids Output: 200cc clear urine EBL: 325 per QBL After the risks, benefits and alternatives of procedure discussed, patient signed consents and was taken to the operating room. Pt was given spinal anesthesia. After same was adequate, patient was prepped and draped in the usual sterile fashion. Castellanos catheter in placed in labor suite and draining clear urine. Pt was given prophylactic antibiotic per protocol and time out was done Pfannenstiel skin incision was made and taken sharply to the fascia and the incision extended using electrocautery. Superior edge of the fascia was grasped with esvin clamps and the rectus muscle using blunt dissection and also using electrocautery. Lower portion of the fascia also with electrocautery. Rectus muscle in the midline and Peritoneal cavity entered bluntly and extended with good visualization of the bladder. The bladder flap was created sharply using metzenbaum scissors. Lower uterine segment then entered transversely and amniotic sac entered using allys clamps. Uterine incision extended using bandage scissors. Infant delivered after circulating nurse pushed the wedged head from below, and then body delivered; bulb suctioned, cord clamped and baby handed to waiting pediatricians. Placenta then delivered completely and uterine cavity cleared of all clots and debri. The uterus was not exteriorized and closed in 2 layers using 0-monocryl suture in a running locked fashion and then an additional layer of imbrication suture. Excellent hemostasis noted. The gutters were cleared of clots and debri and anterior peritoneum closed using 3-0 vicryl continuous suture and rectus muscle reapproximated using 0-vicryl suture in a continuous fashion. Rectus fascia closed with 0-vicryl suture in a continuous fashion from left to right and subcutaneous tissue copiously irrigated with normal saline and re- approximated using 3-0 vicryl suture. Excellent hemostasis remains. The skin was closed with 4-0 monocryl suture and steristrips placed with pressure stephanie ssing. Sponge, lap, instrument and needle counts x2 were normal. Patient tolerated the procedure well and was taken to recovery room stable. Findings: Viable male infant, APGARS 8/9 and weight 4130g. Uterus normal size however with very warm and friable tissue, purulent scant amniotic fluid noted; normal tubes and ovaries. - A at 1 minute: 8 Infant Gender: Male
[2021-02-07] MEDS: AMPICILLIN/NS 2 GM/100 ML 2 GM/100 ML BAG IV SCH ×3 (08:40→22:15)
[2021-02-07] MEDS ORDERED: HYDROCORTISONE 25 MG RECTAL SUPP PR PRN (09:17)
[2021-02-07] MEDS ORDERED: MAGNESIUM HYDROXIDE (MOM) ORAL LIQD UDC PO PRN (09:17)
[2021-02-07] MEDS ORDERED: KETOROLAC 30 MG/1 ML INJ IV PRN (09:17)
[2021-02-07] MEDS ORDERED: WITCH HAZEL/ GLYCERIN PAD TP PRN (09:17)
[2021-02-07] MEDS ORDERED: NALOXONE 0.4 MG/1 ML INJ IV PRN (09:17)
[2021-02-07] MEDS ORDERED: SENNOSIDES 8.6 MG TAB PO PRN (09:17)
[2021-02-07] MEDS ORDERED: MORPHINE 4 MG/1 ML INJ IV PRN (09:17)
[2021-02-07] MEDS ORDERED: PROMETHAZINE 25 MG RECT SUPP PR PRN (09:17)
[2021-02-07] MEDS ORDERED: SIMETHICONE 80 MG CHEW TAB PO PRN (09:17)
[2021-02-07] MEDS ORDERED: LANOLIN/ZINC/DIMETHICONE (LANSINOH) 7 GM TP PRN (09:17)
[2021-02-07] MEDS ORDERED: GENTAMICIN 420 MG in SODIUM CHLORIDE 0.9% 100 ML IV SCH (09:30)
[2021-02-07] MEDS ORDERED: OXYTOCIN DRIP 30 UNITS/500 ML BAG IV SCH (10:00)
[2021-02-07] MEDS: oxyCODONE /ACETAMINOPHEN 5-325MG TAB PO PRN ×2 (14:37→22:14)
[2021-02-07] MEDS: FERROUS SULFATE 325 MG TAB PO SCH (14:38)
[2021-02-07] MEDS: GENTAMICIN 400 MG in SODIUM CHLORIDE 0.9% 100 ML IV SCH (15:36)
[2021-02-07 21:21] LABS: Hematocrit 28.4 % (30.3-42.9); Hemoglobin 9.1 gm/dl (10.1-14.3)
[2021-02-08] MEDS: AMPICILLIN/NS 2 GM/100 ML 2 GM/100 ML BAG IV SCH ×3 (06:40→21:50)
[2021-02-08] MEDS: PRENATAL VIT27-FE FUMARATE-FOLIC ACID VIT TAB PO SCH (09:48)
[2021-02-08] MEDS: IBUPROFEN 800 MG TAB PO PRN (09:48)
[2021-02-08] MEDS: FERROUS SULFATE 325 MG TAB PO SCH (09:48)
--- NOTE | 2021-02-08 12:46 | Post Anesthesia Evaluation ---
- Post Anesthesia Evaluation Patient Participated: Yes Airway Patent: Yes Stable Respiratory Function: Yes Nausea/Vomiting: No Temp > 96.8F: Yes Pain Manageable: Yes Adequeate Hydration: Yes Anesthesia Complications: No Block Receding Appropriately: Yes Patient on Ventilator: No
[2021-02-08] MEDS: GENTAMICIN 400 MG in SODIUM CHLORIDE 0.9% 100 ML IV SCH (12:57)
--- NOTE | 2021-02-08 13:35 | Progress Note ---
Assessment and Plan A: /postop day 1 S/P primary low transverse section. Anemia. Obesity. P: Supplement with iron. Encouraged patient to ambulate. Continue routine /postop care. Subjective - Subjective Date of service: 02/08/21 Principal diagnosis: /postop day 1 S/P primary LTCS Patient reports: appetite normal, voiding normally, pain well controlled, flatus, ambulating normally, no dizzy ambulation, no nauseated : doing well Objective - Vital Signs Latest vital signs: Vital Signs Temp Pulse Resp BP BP Pulse Ox Pulse Ox 02/08/21 08:18 97.7 F 73 18 105/54 95 02/08/21 08:00 98 02/08/21 04:25 98.6 F 84 16 98/51 96 02/07/21 23:49 98.4 F 82 16 96 02/07/21 23:48 98.4 F 81 16 95/50 95 02/07/21 20:30 98 02/07/21 20:06 98.3 F 83 16 100/55 94 02/07/21 19:06 98 02/07/21 17:04 98 02/07/21 16:18 98.4 F 100 H 16 101/58 95 02/07/21 15:02 98 Intake and Output 02/07/21 02/08/21 02/08/21 23:59 07:59 15:59 Intake Total 600 Output Total 600 Balance 0 Intake: IV 360 AMPICILLIN/NS 2 GM/100 ML 200 2 gm In 100 ml @ 100 mls /hr IV Q6H NICOLE Rx#: [id number] CLEOCIN 900 MG/50 mL 900 50 mg In 50 ml @ 100 mls/hr IV Q8H NICOLE Rx#:[id number] Gentamicin 400 mg In NaCl 110 0.9% 100 ml @ 200 mls/hr IV Q24H NICOLE Rx#: [id number] Oral 240 Output: Urine 600 Indwelling Catheter 600 Other: Total, Intake Amount 240 Total, Output Amount 600 # Voids Indwelling Catheter 1 - Exam Cardiovascular: Present: Regular rate Lungs: Present: Clear to auscultation Abdomen: Present: normal appearance, soft, normal bowel sounds. Absent: distention, tenderness, guarding, rigidity Uterus: Present: normal, firm, fundal height below umbilicus (FH at 1 FB below umbilicus). Absent: bogginess, tenderness Extremities: Present: normal, edema (mild pedal edema bilaterally). Absent: tenderness Incision: Present: dry, dressed - Labs Labs: Abnormal lab results 02/07/21 Range/Units 20:50 Hgb 9.1 L (10.1-14.3) gm/dl Hct 28.4 L (30.3-42.9) %
[2021-02-08] MEDS: oxyCODONE /ACETAMINOPHEN 5-325MG TAB PO PRN (21:51)
[2021-02-09] MEDS: IBUPROFEN 800 MG TAB PO PRN ×2 (00:55→08:59)
[2021-02-09] MEDS: FERROUS SULFATE 325 MG TAB PO SCH ×2 (09:00→22:16)
[2021-02-09] MEDS: PRENATAL VIT27-FE FUMARATE-FOLIC ACID VIT TAB PO SCH (09:00)
--- NOTE | 2021-02-09 18:03 | Progress Note ---
Assessment and Plan POD#2 C/S doing fair, still with endomyometritis 1. Will give oral augmentin 2. Iron and vit C and colace for asymptomatic anemia 3. Discharge pt home tomorrow Subjective Date of service: 02/09/21 Principal diagnosis: POD#2 C/S Interval history: pt has no complaints. pt has voided, passed flatus and tolerating regular diet. Denies fever or chills Objective - Constitutional Vitals: Vital Signs - 12hr 02/09/21 02/09/21 02/09/21 08:15 09:01 15:58 Temperature 99.5 F 98.9 F Pulse Rate 90 71 Respiratory 18 18 Rate Blood Pressure 97/61 105/56 O2 Sat by Pulse 97 95 Oximetry O2 Sat by Pulse 100 Oximetry [ Bilateral] General appearance: Present: no acute distress - Respiratory Respiratory effort: normal - Cardiovascular Rhythm: regular Extremities: No edema - Gastrointestinal General gastrointestinal: Present: soft, non-tender - Genitourinary Female genitourinary: other (Dressing removed and incision with steristrips C/D/I; uterine fundus still with mild tenderness) - Neurologic Neurologic: moves all extremities - Labs CBC & Chem 7: 02/07/21 20:50 Medications & Allergies - Medications Allergies/Adverse Reactions: Allergies No Known Allergies Allergy (Verified 02/05/21 22:22) Home Medications: Home Medications Medication Instructions Recorded Confirmed Last Taken Type One Daily Tablet 1 tab PO DAILY 02/05/21 02/05/21 02/05/21 19:00 History Ibuprofen [Motrin] 800 mg PO Q8HR PRN 21 Days #40 02/07/21 Unknown Rx tablet oxyCODONE /ACETAMINOPHEN [Percocet 1 tab PO Q4HR PRN #30 tab 02/07/21 Unknown Rx 5/325] Active Medications: Generic Name Dose Route Start Last Admin Trade Name Freq PRN Reason Stop Dose Admin Amoxicillin/Clavulanate Potassium 1 each 02/09/21 18:00 Amoxicillin/K Clav 875/125mg Tab PO Q12H [facility] Protocol Ferrous Sulfate 325 mg 02/07/21 11:00 02/09/21 09:00 Ferrous Sulfate 325 Mg Tab PO 325 mg QDAY NICOLE Administration Hydrocortisone Acetate 25 mg 02/07/21 09:17 Hydrocortisone 25 Mg Rectal Supp WA BID PRN Hemorrhoids Lactated Ringer's 1,000 mls @ 125 mls/hr 02/05/21 22:15 02/07/21 08:15 Lactated Ringers IV 125 mls/hr DIRECT NICOLE Administration Oxytocin/Sodium Chloride 30 units in 500 mls @ 0 mls/hr 02/06/21 23:00 Pitocin/Ns 30 Unit/500ml IV TITR NICOLE Protocol As Directed Ibuprofen 800 mg 02/07/21 09:17 02/09/21 08:59 Ibuprofen 800 Mg Tab PO 800 mg Q6H PRN Administration Pain, Moderate (4-6) Ketorolac Tromethamine 15 mg 02/07/21 09:17 Ketorolac 30 Mg/1 Ml Inj IV Q6H PRN Pain, Mild (1-3) Loperamide HCl 2 mg 02/05/21 22:07 Loperamide 2 Mg Cap PO ONCE PRN give with Hemabate Magnesium Hydroxide 30 ml 02/07/21 09:17 Magnesium Hydroxide (Mom) Oral Liqd Udc PO QHS PRN Constip Unrelieved By Senna Methylergonovine Maleate 0.2 mg 02/05/21 22:07 Methylergonovine Maleate 0.2 Mg/Ml Vial IM ONCE PRN Uterine Bleeding Mineral Oil 30 ml 02/05/21 22:07 Mineral Oil 30 Ml Oral Liqd PO QHS PRN Constipation Misoprostol 800 mcg 02/05/21 22:07 Misoprostol 200 Mcg Tab WA ONCE PRN Uterine Bleeding Morphine Sulfate 4 mg 02/07/21 09:17 Morphine 4 Mg/1 Ml Inj IV Q4H PRN Pain , Severe (7-10) Multi-Ingredient Ointment 1 applic 02/07/21 09:17 Lanolin/Zinc/Dimethicone (Lansinoh) 7 Gm TP PRN PRN dryness/cracking Multivitamins/Iron/Calcium 1 each 02/07/21 10:00 02/09/21 09:00 [id number] Fumarate-Folic Acid Vit Tab PO 1 each QDAY NICOLE Administration Ondansetron HCl 4 mg 02/06/21 22:45 Ondansetron 4 Mg/2 Ml Inj IV Q8H PRN Nausea And Vomiting Oxycodone/Acetaminophen 2 tab 02/07/21 09:17 02/08/21 21:51 Oxycodone /Acetaminophen 5-325mg Tab PO 2 tab Q6H PRN Administration Pain, Moderate (4-6) Oxytocin 10 unit 02/05/21 22:07 Oxytocin 10 Unit/1 Ml Inj IM ONCE PRN Uterine Bleeding Promethazine HCl 25 mg 02/07/21 09:17 Promethazine 25 Mg Rect Supp WA Q6H PRN N/V IF NPO AND NO IV ACCESS Senna 17.2 mg 02/07/21 09:17 Sennosides 8.6 Mg Tab PO QHS PRN Constipation Simethicone 80 mg 02/07/21 09:17 Simethicone 80 Mg Chew Tab PO Q6H PRN Gas pain Sodium Chloride 10 ml 02/07/21 10:00 Sodium Chloride 0.9% 10 Ml Flush Syringe IV PRN NICOLE Witch Yessy/Glycerin 1 each 02/07/21 09:17 Witch Yessy/ Glycerin Pad TP PRN PRN Hemorrhoids/cleansing/soothing
[2021-02-09] MEDS: AMOXICILLIN/K CLAV 875/125MG TAB PO SCH (20:29)
[2021-02-09] MEDS: oxyCODONE /ACETAMINOPHEN 5-325MG TAB PO PRN (20:29)
[2021-02-09] MEDS: ASCORBIC ACID 500 MG TAB PO SCH (22:16)
[2021-02-09] MEDS: DOCUSATE SODIUM 100 MG CAP PO SCH (22:16)
[2021-02-10] MEDS: AMOXICILLIN/K CLAV 875/125MG TAB PO SCH (07:10)
[2021-02-10] MEDS: FERROUS SULFATE 325 MG TAB PO SCH (10:39)
[2021-02-10] MEDS: DOCUSATE SODIUM 100 MG CAP PO SCH (10:39)
[2021-02-10] MEDS: PRENATAL VIT27-FE FUMARATE-FOLIC ACID VIT TAB PO SCH (10:39)
[2021-02-10] MEDS: ASCORBIC ACID 500 MG TAB PO SCH (10:40)
--- NOTE | 2021-02-10 10:54 | Progress Note ---
Assessment and Plan A: /postop day 3 S/P primary LTCS. Anemia. P: Discharge patient home today. Advised patient to take the following prescriptions, which were called to [facility] pharmacy on [address] [facility] in [place], [place]: Augmentin 875 mg, #10, 1 po BID, 0 RF and Ferrous Sulfate 325 mg, #60, 1 po BID, 1 RF. Advised patient to avoid intercourse, driving, lifting, housework, stair climbing, and tub baths (patient may take showers). Advised patient to follow up at [facility] in 1 week. Patient voiced understanding of all instructions. Subjective - Subjective Date of service: 02/10/21 Principal diagnosis: POD#3 C/S Interval history: Patient desires discharge home today. Doing well. Denies pain. Patient reports: appetite normal, voiding normally, pain well controlled, flatus, ambulating normally, no dizzy ambulation, no nauseated [place]: doing well Objective - Vital Signs Latest vital signs: Vital Signs Temp Pulse Resp BP BP Pulse Ox Pulse Ox 02/10/21 07:59 98.6 F 65 16 107/58 97 02/10/21 00:40 98.2 F 66 18 104/52 97 02/09/21 21:29 18 02/09/21 21:00 100 02/09/21 20:29 18 02/09/21 15:58 98.9 F 71 18 105/56 95 Intake and Output 02/09/21 02/10/21 02/10/21 23:59 07:59 15:59 Intake Total 360 240 Balance 360 240 Intake: Oral 360 240 Other: Total, Intake Amount 120 120 # Voids Indwelling Catheter 1 1 - Exam Cardiovascular: Present: Regular rate Lungs: Present: Clear to auscultation Abdomen: Present: normal appearance, soft, normal bowel sounds. Absent: distention, tenderness, guarding, rigidity Uterus: Present: normal, firm, fundal height below umbilicus (FH at 2 FB below umbilicus). Absent: bogginess, tenderness Extremities: Present: normal. Absent: tenderness, edema Incision: Present: normal, dry, intact
--- NOTE | 2021-02-10 11:00 | Discharge Summary ---
Providers - Providers Date of Admission: 02/05/21 20:53 Date of discharge: 02/10/21 Attending physician: ALYSIA MORGAN MD Primary care physician: ALYSIA MORGAN MD Hospitalization Reason for admission: induction of labor Delivery: Procedure: primary low transverse Incision: normal, dry, intact Other procedures: none Discharge diagnosis: IUP at term delivered baby: male Pertinent studies: Labs Hospital course: Stable hospital course. Anemia, supplemented with iron. Chorioamnionitis, received antibiotics. Condition at discharge: Good Disposition: 01 HOME / SELF CARE / HOMELESS - Discharge Diagnoses (1) Term delivered Status: Acute (2) Anemia Status: Acute Plan - Discharge Medications Prescriptions: Ibuprofen [Motrin] 800 mg PO Q8HR PRN 21 Days #40 tablet PRN Reason: Pain, Mild (1-3) oxyCODONE /ACETAMINOPHEN [Percocet 5/325] 1 tab PO Q4HR PRN #30 tab PRN Reason: Pain , Severe (7-10) - Provider Discharge Summary Activity: routine, no sex for 6 weeks, no heavy lifting 4 weeks, no strenuous exercise Diet: routine Instructions: routine Additional instructions: Take Augmentin 875 mg by oral route every 12 hours for 5 days (prescription called to [facility] pharmacy in [place]). Take iron supplement by oral route every 12 hours for 1 month (prescription called to [facility] pharmacy in [place]). Follow up at [facility] clinic in 1 week. Call your doctor immediately for: * Fever > 100.5 * Heavy vaginal bleeding ( >1 pad per hour) * Severe persistent headache * Shortness of breath * Reddened, hot, painful area to leg or breast * Drainage or odor from incision. * Keep incision clean and dry at all times and follow doctor's instructions regarding bathing/showering - Follow up plan Follow up: PRIMARY CARE, [Referring] - 7 Days Forms: [facility] Discharge Summary
[2021-02-10 14:12] VITALS: BP 107/61
== END 2021-02-10 14:15 | disposition home or self-care (01) | DRG 788 ==
LOC: LD 20:53 → OB 02-07 08:40
PROVIDERS: ADMIT Obstetrics & Gynecology; ATTEND Obstetrics & Gynecology
PROC: 10D00Z1 Extraction of Products of Conception, Low, Open Approach (ICD-10-PCS; principal; 2021-02-07)
DX: O76 Abnormality in fetal heart rate and rhythm complicating labor and delivery (principal); O99.62 Diseases of the digestive system complicating childbirth; Z3A.41 41 weeks gestation of pregnancy; Z37.0 Single live birth; K21.9 Gastro-esophageal reflux disease without esophagitis; O90.81 Anemia of the puerperium; O99.215 Obesity complicating the puerperium; Z20.822 Contact with and (suspected) exposure to COVID-19
CPT/HCPCS: 36415; 76816; 85014; 85018; 85027; 85461; 86850; 86900; 86901; 88307; 96360; 96365; 96372; 99211; G0378; G0463; J0131; J0290; J0595; J0690; J1100; J1580; J2370; J2405; J2590; J2765; J3010; J3490; J7120; U0003